=== PATIENT | male | born 1950 | race Caucasian/White ===

== ENCOUNTER 2016-12-10 08:10 | Emergency (ER) | payer MEDICARE, BC ==
[2016-12-10 08:29] VITALS: BP 164/88
[2016-12-10] MEDS ORDERED: HYDROmorphone 2 MG/ML Syringe IVPUSH ONE (08:52)
[2016-12-10] MEDS ORDERED: predniSONE 20 MG Tab PO ONE (08:53)
--- NOTE | 2016-12-10 08:59 | EDM.PDOC ---
ED HPI GENERAL MEDICAL PROBLEM - General Chief Complaint: Back Pain or Injury Stated Complaint: BACK PAIN Time Seen by Provider: 12/10/16 08:42 - History of Present Illness INITIAL COMMENTS - FREE TEXT/NARRATIVE: HISTORY AND PHYSICAL: History of present illness: The patient is a 66-year-old male with a history of cardiac disease who presents with right posterior pelvis/lumbar back pain that started 5 days ago. The patient states he was in his usual state of good health and he was stepping out of his truck and put pressure on his heel and immediately felt pain in his posterior right pelvis. The pain has been persistent and it has been increasing in intensity. He has intermittent spasms when the pain gets worse. Patient states he has had something similar in the past so he started with Motrin 800 mg and he had some leftover Flexeril and tramadol which he tried. When all of it did not work he had some Percocet left over from his CABG which were 5/325 and his been taking one every 4-6 hours. According to the if he sits in his recliner with a pillow behind him he is comfortable but any movement or stepping on that right leg produces pain in the location of the posterior pelvis. He has no weakness or sensory changes in his right leg. He has had no bowel or bladder disturbances and no midline back pain. The pain does not shoot to his leg. Patient follows at [facility] with Dr. Mauricio. The patient has no right flank pain no hematuria dysuria or frequency. He states that the pain in the area he is having started immediately as he stepped out of his truck that day. Review of systems: As per history of present illness and below otherwise all systems reviewed and negative. Past medical history: As per history of present illness and as reviewed below otherwise noncontributory. Surgical history: As per history of present illness and as reviewed below otherwise noncontributory. Social history: No reported history of drug or alcohol abuse. Family history: As per history of present illness and as reviewed below otherwise noncontributory. Physical exam: General: Well-developed overweight male who looks uncomfortable in the room and prefers to stand and clearly when you see him try to weight-bear on the right leg he grabs his right lumbar back pelvis area. HEENT: Atraumatic, normocephalic, negative for conjunctival pallor or scleral icterus, mucous membranes moist, throat clear, neck supple, nontender, trachea midline. Lungs: Clear to auscultation, breath sounds equal bilaterally, chest nontender. Heart: S1S2, regular, negative overt murmurs Well-healed midline sternotomy scar Abdomen: Soft, nondistended, nontender. Rotund large abdomen NABS Negative for costovertebral tenderness. Pelvis: Stable but there is discrete tenderness at palpation of the SI joint area on the right without any fullness soft tissue swelling ecchymosis. Genitourinary: Deferred. Rectal: Deferred. Extremities: Atraumatic, negative for cords or calf pain. Neurovascular unremarkable. Neuro: Awake, alert, oriented. Cranial nerves II through XII unremarkable. Cerebellum unremarkable. Motor and sensory unremarkable throughout. Exam nonfocal. Back: There are no midline step-offs or defects the thoracic or lumbar spine no CVA tenderness. There is posterior pelvis tenderness as described above which reproduces the pain. There is no pain to palpation of the buttocks Diagnostics: [] Therapeutics: Dilaudid prednisone Norflex I discussed with the patient and the at bedside that we can try a burst of steroids as well as increasing his Percocet to 2 tablets and I will change his muscle relaxer from Flexeril to Norflex. I strongly advised reasons to return to the ED as well as need for followup with Dr. Heraclio Mauricio tomorrow. Impression: Acute right lumbar back pain/SI joint pain Definitive disposition and diagnosis as appropriate pending reevaluation and review of above. Right low back Pain Score (Numeric/FACES): 8 - Related Data Allergies Allergy/AdvReac Type Severity Reaction Status Date / Time atorvastatin [From Lipitor] Allergy Cannot Verified 08/27/16 12:28 Remember Home Meds: Home Meds Rosuvastatin [Crestor] 20 mg PO DAILY 03/22/16 [History] metFORMIN HCl [Metformin HCl ER] 1 tab PO BID 03/22/16 [History] Aspirin [Low Dose Aspirin EC] 81 mg PO DAILY 05/28/16 [History] Carvedilol [Coreg] 25 mg PO BID 05/28/16 [History] Cyclobenzaprine [Flexeril] 10 mg PO BID PRN #14 tablet 08/27/16 [Rx] Insulin Glarg,Human.Rec.Analog [Lantus Solostar] 17 units SQ DAILY 08/27/16 [ History] Omeprazole 1 cap PO BID 08/27/16 [History] buPROPion HCl [Wellbutrin Xl] 1 tab PO DAILY 08/27/16 [History] Past Medical History HEENT History: Reports: Cataract Cardiovascular History: Reports: High cholesterol, Hypertension, LA Other Cardiovascular History: LA was 16 years ago. open heart surgery 04/26/16 Respiratory History: Reports: None Gastrointestinal History: Reports: GERD Other Gastrointestinal History: states has "chest pain" every night from GERD, after eating and lying down Genitourinary History: Reports: None Musculoskeletal History: Reports: None Neurological History: Reports: None Psychiatric History: Reports: Anxiety, Depression Endocrine/Metabolic History: Reports: Diabetes, type II, Obesity/BMI 30+ Hematologic History: Reports: None Immunologic History: Reports: None Oncologic (Cancer) History: Reports: None Dermatologic History: Reports: None - Infectious Disease History Infectious Disease History: Reports: None - Past Surgical History Head Surgeries/Procedures: Reports: None HEENT Surgical History: Reports: Cataract surgery Cardiovascular Surgical History: Reports: Coronary artery bypass Respiratory Surgical History: Reports: Thoracentesis, Other (see below) Other Respiratory Surgeries/Procedures: chest tube left. thoracentesis May GI Surgical History: Reports: None Male Surgical History: Reports: None Endocrine Surgical History: Reports: None Neurological Surgical History: Reports: None Musculoskeletal Surgical History: Reports: Knee replacement Other Musculoskeletal Surgeries/Procedures:: right Oncologic Surgical History: Reports: None Dermatological Surgical History: Reports: None Social & Family History - Family History Family Medical History: Noncontributory - Tobacco Use Smoking Status *Q: Never Smoker Second Hand Smoke Exposure: No - Caffeine Use Caffeine Use: Reports: Coffee - Recreational Drug Use Recreational Drug Use: No Drug Use in Last 12 Months: No ED ROS GENERAL - Review of Systems Review Of Systems: ROS reveals no pertinent complaints other than HPI. (See dictation) ED EXAM, GENERAL - Physical Exam Exam: See Below (See dictation) Course - Vital Signs Last Recorded V/S: Last Vital Signs Temp 36.1 C 12/10/16 08:26 Pulse 88 12/10/16 08:26 Resp 16 12/10/16 08:26 BP 164/88 H 12/10/16 08:26 Pulse Ox 98 12/10/16 08:26 - Orders/Labs/Meds Orders: Active Orders 24 hr Category Date Time Status predniSONE Med 12/10/16 08:53 Once 60 mg PO ONETIME ONE Meds: Medications Discontinued Medications Generic Name Dose Route Start Last Admin Trade Name Lawrence PRN Reason Stop Dose Admin Hydromorphone HCl 1 mg 12/10/16 08:52 Dilaudid IVPUSH 12/10/16 08:53 ONETIME ONE Orphenadrine Citrate 60 mg 12/10/16 08:52 Norflex IM 12/10/16 08:53 ONETIME ONE Prednisone 60 mg 12/10/16 08:53 Prednisone PO 12/10/16 08:54 ONETIME ONE Departure - Departure Time of Disposition: 09:00 Disposition: Home, Self-Care 01 Condition: fair Clinical Impression: Pain of right sacroiliac joint Acute lumbar back pain Qualifiers: Back pain laterality: right Sciatica presence: without sciatica Qualified Code( s): M54.5 - Low back pain Forms: ED Department Discharge Additional Instructions: The following information is given to patients seen in the emergency department who are being discharged to home. This information is to outline your options for follow-up care. We provide all patients seen in our emergency department with a follow-up referral. The need for follow-up, as well as the timing and circumstances, are variable depending upon the specifics of your emergency department visit. If you don't have a primary care physician on staff, we will provide you with a referral. We always advise you to contact your personal physician following an emergency department visit to inform them of the circumstance of the visit and for follow-up with them and/or the need for any referrals to a consulting specialist. The emergency department will also refer you to a specialist when appropriate. This referral assures that you have the opportunity for followup care with a specialist. All of these measure are taken in an effort to provide you with optimal care, which includes your followup. Under all circumstances we always encourage you to contact your private physician who remains a resource for coordinating your care. When calling for followup care, please make the office aware that this follow-up is from your recent emergency room visit. If for any reason you are refused follow-up, please contact the [facility] emergency department at and ask to speak to the emergency department charge nurse. [address] [place] [address] Please increased her Percocet to 2 tablets every 6 hours as needed and stop the tramadol and Flexeril. Start the prednisone you have been prescribed tomorrow, as you have been given a dose or ready today in the ER. Please start the Norflex as directed and return to ER as needed and as we discussed. Please call and followup with Dr. Heraclio Rivera tomorrow - My Orders Last 24 Hours: My Active Orders 12/10/16 08:53 predniSONE 60 mg PO ONETIME ONE - Assessment/Plan Last 24 Hours: My Active Orders 12/10/16 08:53 predniSONE 60 mg PO ONETIME ONE
== END 2016-12-10 09:19 | disposition home or self-care (01) ==
LOC: MW.ED 08:10
DX: M53.3 Sacrococcygeal disorders, not elsewhere classified (principal); M54.5 Low back pain; I25.2 Old myocardial infarction; I10 Essential (primary) hypertension; E78.00 Pure hypercholesterolemia, unspecified; K21.9 Gastro-esophageal reflux disease without esophagitis; F41.9 Anxiety disorder, unspecified; E11.9 Type 2 diabetes mellitus without complications; E66.9 Obesity, unspecified; Z68.34 Body mass index [BMI] 34.0-34.9, adult; Z98.49 Cataract extraction status, unspecified eye; Z95.1 Presence of aortocoronary bypass graft; Z98.890 Other specified postprocedural states; Z96.651 Presence of right artificial knee joint; Z79.82 Long term (current) use of aspirin; Z79.4 Long term (current) use of insulin; Z79.899 Other long term (current) drug therapy; Z88.8 Allergy status to other drugs, medicaments and biological substances
CPT/HCPCS: 96372; 99283; A9270; J1170; J2360; 99284

== ENCOUNTER 2019-05-18 22:42 | Emergency (ER) | payer MEDICARE, BC ==
--- NOTE | 2019-05-18 22:47 | EDM.PDOC ---
<Kwadwo Conroy - Last Filed: 05/19/19 02:11> ED HPI GENERAL MEDICAL PROBLEM - General Stated Complaint: TROUBLE BREATHING Time Seen by Provider: 05/18/19 22:44 Left side/back Pain Score (Numeric/FACES): 7 - Related Data Allergies Allergy/AdvReac Type Severity Reaction Status Date / Time atorvastatin [From Lipitor] Allergy Body Aches Verified 05/18/19 23:27 Home Meds: Home Meds Insulin Glarg,Human.Rec.Analog [Lantus Solostar] 30 units SQ DAILY 08/27/16 [ History] Aspirin 81 mg PO DAILY 05/18/19 [History] Carvedilol [Coreg] 25 mg PO DAILY 05/18/19 [History] Empagliflozin [Jardiance] 25 mg PO DAILY 05/18/19 [History] Gabapentin [Neurontin] 200 mg PO BID 05/18/19 [History] Losartan Potassium 50 mg PO DAILY 05/18/19 [History] Omeprazole 40 mg PO DAILY 05/18/19 [History] Pravastatin [Pravachol] 40 mg PO DAILY 05/18/19 [History] Umeclidinium Brm/Vilanterol Tr [Anoro Ellipta 62.5-25 MCG] 62.5 mcg IH DAILY 01/31 [History] buPROPion HCl [Wellbutrin Xl] 300 mg PO DAILY 05/18/19 [History] metFORMIN HCl [Metformin HCl] 1,000 mg PO BID 05/18/19 [History] ED ROS GENERAL - Review of Systems Review Of Systems: ROS reveals no pertinent complaints other than HPI. ED EXAM, GENERAL - Physical Exam Exam: See Below (The dictation) Course - Vital Signs Text/Narrative:: Patient's emergency department course has been unremarkable CT scan demonstrated a confluent left hilar mass extending to the subcarinal space this mass is causing narrowing of left pulmonary artery and occlusion of the left upper lobe narrowing of the lingula left lower lobe bronchi partial atelectasis of the left lung there is a small left pleural effusion noted there is also bilateral groundglass opacities as well as some interlobular septal thickening suggesting pulmonary edema slight focal focal consolidation within the residual aerated left lower lobe Also Represe Postobstructive Pneumonia Patient Lactate Was 1.2. Blood Cultures Were Drawn and Levaquin 750 Mg Is Given IV Patient Be Transferred to [place] per Family's Request Where His Oncologist Is. Last Recorded V/S: Last Vital Signs Temp 97.0 F 05/18/19 22:43 Pulse 62 05/19/19 02:52 Resp 17 05/19/19 02:52 BP 148/80 H 05/19/19 02:52 Pulse Ox 92 L 05/19/19 02:52 - Orders/Labs/Meds Orders: Active Orders 24 hr Category Date Time Status EKG 12 Lead [EKG Documentation Completion] [RC] STAT Care 05/18/19 22:48 Active CULTURE BLOOD [BC] Stat Lab 05/19/19 01:14 Received CULTURE BLOOD [BC] Stat Lab 05/19/19 01:18 Received Blood Culture x2 Reflex Set [OM.PC] Stat Oth 05/19/19 00:58 Ordered Saline Lock Insert [OM.PC] Stat Oth 05/18/19 22:49 Ordered Labs: Laboratory Tests 05/18/19 05/18/19 05/18/19 Range/Units 22:57 22:57 22:57 WBC 5.24 (4.0-11.0) K/uL RBC 4.97 (4.50-5.90) M/uL Hgb 14.5 (13.0-17.0) g/dL Hct 45.8 (38.0-50.0) % MCV 92.2 (80.0-98.0) fL MCH 29.2 (27.0-32.0) pg MCHC 31.7 (31.0-37.0) g/dL RDW Std Deviation 46.5 (28.0-62.0) fl RDW Coeff of Vannessa 14 (11.0-15.0) % Plt Count 262 (150-400) K/uL MPV 9.90 (7.40-12.00) fL Neut % (Auto) 59.1 (48.0-80.0) % Lymph % (Auto) 26.9 (16.0-40.0) % [place] % (Auto) 11.3 (0.0-15.0) % Eos % (Auto) 2.1 (0.0-7.0) % Baso % (Auto) 0.6 (0.0-1.5) % Neut # (Auto) 3.1 (1.4-5.7) K/uL Lymph # (Auto) 1.4 (0.6-2.4) K/uL [place] # (Auto) 0.6 (0.0-0.8) K/uL Eos # (Auto) 0.1 (0.0-0.7) K/uL Baso # (Auto) 0.0 (0.0-0.1) K/uL Nucleated RBC % 0.0 /100WBC Nucleated RBCs # 0 K/uL ABG pH (7.35-7.45) ABG pCO2 (35-45) mmHG ABG pO2 (75-100) mmHG ABG HCO3 (22-26) mEq/L ABG Total CO2 ABG Base Excess (-2.0-2.0) Lactate 1.2 (0.20-2.00) mmol/L Sodium 140 (136-148) mmol/L Potassium 5.0 (3.5-5.1) mmol/L Chloride 104 (98-107) mmol/L Carbon Dioxide 31.9 (21.0-32.0) mmol/L BUN 19 H (7.0-18.0) mg/dL Creatinine 1.2 (0.8-1.3) mg/dL Est Cr Clr Drug Dosing 58.10 mL/min Estimated GFR (MDRD) > 60.0 ml/min Glucose 183 H (74-106) mg/dL Calcium 9.0 (8.5-10.1) mg/dL Total Bilirubin 0.2 (0.2-1.0) mg/dL AST 31 (15-37) IU/L ALT 19 (14-63) IU/L Alkaline Phosphatase 74 (46-116) U/L Troponin I < 0.050 (0.000-0.056) ng/mL Total Protein 6.7 (6.4-8.2) g/dL Albumin 3.4 (3.4-5.0) g/dL Globulin 3.3 (2.6-4.0) g/dL Albumin/Globulin Ratio 1.0 (0.9-1.6) 05/18/19 Range/Units 23:50 WBC (4.0-11.0) K/uL RBC (4.50-5.90) M/uL Hgb (13.0-17.0) g/dL Hct (38.0-50.0) % MCV (80.0-98.0) fL MCH (27.0-32.0) pg MCHC (31.0-37.0) g/dL RDW Std Deviation (28.0-62.0) fl RDW Coeff of Vannessa (11.0-15.0) % Plt Count (150-400) K/uL MPV (7.40-12.00) fL Neut % (Auto) (48.0-80.0) % Lymph % (Auto) (16.0-40.0) % [place] % (Auto) (0.0-15.0) % Eos % (Auto) (0.0-7.0) % Baso % (Auto) (0.0-1.5) % Neut # (Auto) (1.4-5.7) K/uL Lymph # (Auto) (0.6-2.4) K/uL [place] # (Auto) (0.0-0.8) K/uL Eos # (Auto) (0.0-0.7) K/uL Baso # (Auto) (0.0-0.1) K/uL Nucleated RBC % /100WBC Nucleated RBCs # K/uL ABG pH 7.361 (7.35-7.45) ABG pCO2 52 H (35-45) mmHG ABG pO2 66 L (75-100) mmHG ABG HCO3 29 H (22-26) mEq/L ABG Total CO2 26.4 ABG Base Excess 2.8 H (-2.0-2.0) Lactate (0.20-2.00) mmol/L Sodium (136-148) mmol/L Potassium (3.5-5.1) mmol/L Chloride (98-107) mmol/L Carbon Dioxide (21.0-32.0) mmol/L BUN (7.0-18.0) mg/dL Creatinine (0.8-1.3) mg/dL Est Cr Clr Drug Dosing mL/min Estimated GFR (MDRD) ml/min Glucose (74-106) mg/dL Calcium (8.5-10.1) mg/dL Total Bilirubin (0.2-1.0) mg/dL AST (15-37) IU/L ALT (14-63) IU/L Alkaline Phosphatase (46-116) U/L Troponin I (0.000-0.056) ng/mL Total Protein (6.4-8.2) g/dL Albumin (3.4-5.0) g/dL Globulin (2.6-4.0) g/dL Albumin/Globulin Ratio (0.9-1.6) Meds: Medications Discontinued Medications Generic Name Dose Route Start Last Admin Trade Name Freq PRN Reason Stop Dose Admin Hydromorphone HCl 1 mg 05/19/19 01:06 05/19/19 01:15 Dilaudid IVPUSH 05/19/19 01:07 1 mg ONETIME ONE Administration Levofloxacin/Dextrose 750 mg/ 150 mls @ 100 mls/hr 05/19/19 00:58 05/19/19 01 :15 Premix IV 05/19/19 02:27 100 mls/hr ONETIME ONE Administration Iopamidol 100 ml 05/19/19 00:21 05/19/19 00:22 Isovue Multipack-370 (76%) IVPUSH 05/19/19 00:22 100 ml ONETIME STA Administration Ondansetron HCl 4 mg 05/19/19 01:06 05/19/19 01:15 Zofran IVPUSH 05/19/19 01:07 4 mg ONETIME ONE Administration Sodium Chloride 10 ml 05/18/19 22:49 05/18/19 23:18 Saline Flush FLUSH 10 ml ASDIRECTED PRN Administration Keep Vein Open Sodium Chloride 2.5 ml 05/18/19 22:49 05/18/19 23:18 Saline Flush FLUSH 2.5 ml ASDIRECTED PRN Administration Keep Vein Open Departure - Departure Time of Disposition: 02:12 Disposition: DC/Tfer to Acute Hospital 02 Condition: Good Clinical Impression: Dyspnea Qualifiers: Dyspnea type: other forms of dyspnea Qualified Code(s): R06.09 - Other forms of dyspnea Pulmonary cancer Qualifiers: Laterality: left Lung location: hilum of lung Qualified Code(s): C34.02 - Malignant neoplasm of left main bronchus - Discharge Information Referrals: Heraclio Mauricio MD [Primary Care Provider] - Forms: ED Department Discharge - My Orders Last 24 Hours: My Active Orders 05/18/19 22:48 EKG 12 Lead [EKG Documentation Completion] [RC] STAT 05/18/19 22:49 Saline Lock Insert [OM.PC] Stat - Assessment/Plan Last 24 Hours: My Active Orders 05/18/19 22:48 EKG 12 Lead [EKG Documentation Completion] [RC] STAT 05/18/19 22:49 Saline Lock Insert [OM.PC] Stat <Kash Newman E - Last Filed: 05/19/19 10:09> ED HPI GENERAL MEDICAL PROBLEM - General Source of Information: Reports: Patient History Limitations: Reports: No Limitations - History of Present Illness INITIAL COMMENTS - FREE TEXT/NARRATIVE: HISTORY AND PHYSICAL: History of present illness: Patient is a 68-year-old male who presents to the emergency room with complaints of shortness of breath over the past 24 hours. He reports that he was diagnosed with lung cancer last month at [facility] while receiving a respiratory/cardiac work-up. Stats they found a tumor to the left posterior chest wall "the size of a tennis ball". He is supposed to have his initial consultation with Dr. Mcguire, the oncologist, on Sunday (05/21/19) prior to starting radiation and/or chemotherapy. Since his diagnoses he has been on home oxygen as needed up to 3 L. He has been using his oxygen today and his oxygen saturation was 73% while on 3L. Besides the shortness of breath he has the sensation of the tumor in his posterior chest wall "pushing up against everything" making it hard to take full deep breaths. He has lost his voice but denies any difficulty swallowing nor throat pain. He denies any fever, chills, headache, syncope or near syncope. He denies any chest pain, abdominal pain, nausea, vomiting, diarrhea or constipation. He has been eating and drinking appropriately. Past medical history of hypertension, [place] with CABG, and chronic back pain. Review of systems: As per history of present illness and below otherwise all systems reviewed and negative. Past medical history: As per history of present illness and as reviewed below otherwise noncontributory. Surgical history: As per history of present illness and as reviewed below otherwise noncontributory. Social history: See social history for further information Family history: As per history of present illness and as reviewed below otherwise noncontributory. Physical exam: General: Well-developed and well-nourished 68-year-old male. Alert and oriented. Nontoxic appearing and in no acute distress. HEENT: Atraumatic, normocephalic, pupils equal and reactive bilaterally, negative for conjunctival pallor or scleral icterus, mucous membranes moist, throat clear, neck supple, nontender, trachea midline. No drooling or trismus noted. No meningeal signs. No hot potato voice noted. Lungs: Diminished to left base with fine rhonchi to right base, chest nontender to palpation. Heart: S1S2, regular rate and rhythm without overt murmur Abdomen: Soft, nondistended, nontender. Negative for masses. Negative for costovertebral tenderness. Pelvis: Stable nontender. Skin: Intact, warm, dry. No lesions or rashes noted. Extremities: Atraumatic, moves all extremities per self without difficulty or deficits, negative for cords or calf pain. Neurovascular unremarkable. Neuro: Awake, alert, oriented. Cranial nerves II through XII unremarkable. Cerebellum unremarkable. Motor and sensory unremarkable throughout. Exam nonfocal. Notes: Diagnostics are pending. Dr. Conroy was briefed on this patient; will assume care of patient. Diagnostics: CBC, CMP, Troponin, EKG, CTA Therapeutics: Saline Lock Definitive disposition and diagnosis as appropriate pending reevaluation and review of above. Past Medical History HEENT History: Reports: Cataract Cardiovascular History: Reports: High Cholesterol, Hypertension, [place] Other Cardiovascular History: [place] was 16 years ago. open heart surgery 04/26/16 Respiratory History: Reports: None Gastrointestinal History: Reports: GERD Other Gastrointestinal History: states has "chest pain" every night from GERD, after eating and lying down Genitourinary History: Reports: None Musculoskeletal History: Reports: None Neurological History: Reports: None Psychiatric History: Reports: Anxiety, Depression Endocrine/Metabolic History: Reports: Diabetes, Type II, Obesity/BMI 30+ Hematologic History: Reports: None Immunologic History: Reports: None Oncologic (Cancer) History: Reports: None Dermatologic History: Reports: None - Infectious Disease History Infectious Disease History: Reports: None - Past Surgical History HEENT Surgical History: Reports: Cataract Surgery Cardiovascular Surgical History: Reports: Coronary Artery Bypass Respiratory Surgical History: Reports: Thoracentesis, Other (See Below) Musculoskeletal Surgical History: Reports: Knee Replacement Social & Family History - Family History Family Medical History: Noncontributory - Caffeine Use Caffeine Use: Reports: Coffee Course - Vital Signs Last Recorded V/S: Last Vital Signs Temp 97.0 F 05/18/19 22:43 Pulse 62 05/19/19 02:52 Resp 17 05/19/19 02:52 BP 148/80 H 05/19/19 02:52 Pulse Ox 92 L 05/19/19 02:52 - Orders/Labs/Meds Orders: Active Orders 24 hr Category Date Time Status EKG 12 Lead [EKG Documentation Completion] [RC] STAT Care 05/18/19 22:48 Active CULTURE BLOOD [BC] Stat Lab 05/19/19 01:14 Received CULTURE BLOOD [BC] Stat Lab 05/19/19 01:18 Received Blood Culture x2 Reflex Set [OM.PC] Stat Oth 05/19/19 00:58 Ordered Saline Lock Insert [OM.PC] Stat Oth 05/18/19 22:49 Ordered Labs: Laboratory Tests 05/18/19 05/18/19 05/18/19 Range/Units 22:57 22:57 22:57 WBC 5.24 (4.0-11.0) K/uL RBC 4.97 (4.50-5.90) M/uL Hgb 14.5 (13.0-17.0) g/dL Hct 45.8 (38.0-50.0) % MCV 92.2 (80.0-98.0) fL MCH 29.2 (27.0-32.0) pg MCHC 31.7 (31.0-37.0) g/dL RDW Std Deviation 46.5 (28.0-62.0) fl RDW Coeff of Vannessa 14 (11.0-15.0) % Plt Count 262 (150-400) K/uL MPV 9.90 (7.40-12.00) fL Neut % (Auto) 59.1 (48.0-80.0) % Lymph % (Auto) 26.9 (16.0-40.0) % [place] % (Auto) 11.3 (0.0-15.0) % Eos % (Auto) 2.1 (0.0-7.0) % Baso % (Auto) 0.6 (0.0-1.5) % Neut # (Auto) 3.1 (1.4-5.7) K/uL Lymph # (Auto) 1.4 (0.6-2.4) K/uL [place] # (Auto) 0.6 (0.0-0.8) K/uL Eos # (Auto) 0.1 (0.0-0.7) K/uL Baso # (Auto) 0.0 (0.0-0.1) K/uL Nucleated RBC % 0.0 /100WBC Nucleated RBCs # 0 K/uL ABG pH (7.35-7.45) ABG pCO2 (35-45) mmHG ABG pO2 (75-100) mmHG ABG HCO3 (22-26) mEq/L ABG Total CO2 ABG Base Excess (-2.0-2.0) Lactate 1.2 (0.20-2.00) mmol/L Sodium 140 (136-148) mmol/L Potassium 5.0 (3.5-5.1) mmol/L Chloride 104 (98-107) mmol/L Carbon Dioxide 31.9 (21.0-32.0) mmol/L BUN 19 H (7.0-18.0) mg/dL Creatinine 1.2 (0.8-1.3) mg/dL Est Cr Clr Drug Dosing 58.10 mL/min Estimated GFR (MDRD) > 60.0 ml/min Glucose 183 H (74-106) mg/dL Calcium 9.0 (8.5-10.1) mg/dL Total Bilirubin 0.2 (0.2-1.0) mg/dL AST 31 (15-37) IU/L ALT 19 (14-63) IU/L Alkaline Phosphatase 74 (46-116) U/L Troponin I < 0.050 (0.000-0.056) ng/mL Total Protein 6.7 (6.4-8.2) g/dL Albumin 3.4 (3.4-5.0) g/dL Globulin 3.3 (2.6-4.0) g/dL Albumin/Globulin Ratio 1.0 (0.9-1.6) 05/18/19 Range/Units 23:50 WBC (4.0-11.0) K/uL RBC (4.50-5.90) M/uL Hgb (13.0-17.0) g/dL Hct (38.0-50.0) % MCV (80.0-98.0) fL MCH (27.0-32.0) pg MCHC (31.0-37.0) g/dL RDW Std Deviation (28.0-62.0) fl RDW Coeff of Vannessa (11.0-15.0) % Plt Count (150-400) K/uL MPV (7.40-12.00) fL Neut % (Auto) (48.0-80.0) % Lymph % (Auto) (16.0-40.0) % [place] % (Auto) (0.0-15.0) % Eos % (Auto) (0.0-7.0) % Baso % (Auto) (0.0-1.5) % Neut # (Auto) (1.4-5.7) K/uL Lymph # (Auto) (0.6-2.4) K/uL [place] # (Auto) (0.0-0.8) K/uL Eos # (Auto) (0.0-0.7) K/uL Baso # (Auto) (0.0-0.1) K/uL Nucleated RBC % /100WBC Nucleated RBCs # K/uL ABG pH 7.361 (7.35-7.45) ABG pCO2 52 H (35-45) mmHG ABG pO2 66 L (75-100) mmHG ABG HCO3 29 H (22-26) mEq/L ABG Total CO2 26.4 ABG Base Excess 2.8 H (-2.0-2.0) Lactate (0.20-2.00) mmol/L Sodium (136-148) mmol/L Potassium (3.5-5.1) mmol/L Chloride (98-107) mmol/L Carbon Dioxide (21.0-32.0) mmol/L BUN (7.0-18.0) mg/dL Creatinine (0.8-1.3) mg/dL Est Cr Clr Drug Dosing mL/min Estimated GFR (MDRD) ml/min Glucose (74-106) mg/dL Calcium (8.5-10.1) mg/dL Total Bilirubin (0.2-1.0) mg/dL AST (15-37) IU/L ALT (14-63) IU/L Alkaline Phosphatase (46-116) U/L Troponin I (0.000-0.056) ng/mL Total Protein (6.4-8.2) g/dL Albumin (3.4-5.0) g/dL Globulin (2.6-4.0) g/dL Albumin/Globulin Ratio (0.9-1.6) Meds: Medications Discontinued Medications Generic Name Dose Route Start Last Admin Trade Name Freq PRN Reason Stop Dose Admin Hydromorphone HCl 1 mg 05/19/19 01:06 05/19/19 01:15 Dilaudid IVPUSH 05/19/19 01:07 1 mg ONETIME ONE Administration Levofloxacin/Dextrose 750 mg/ 150 mls @ 100 mls/hr 05/19/19 00:58 05/19/19 01 :15 Premix IV 05/19/19 02:27 100 mls/hr ONETIME ONE Administration Iopamidol 100 ml 05/19/19 00:21 05/19/19 00:22 Isovue Multipack-370 (76%) IVPUSH 05/19/19 00:22 100 ml ONETIME STA Administration Ondansetron HCl 4 mg 05/19/19 01:06 05/19/19 01:15 Zofran IVPUSH 05/19/19 01:07 4 mg ONETIME ONE Administration Sodium Chloride 10 ml 05/18/19 22:49 05/18/19 23:18 Saline Flush FLUSH 10 ml ASDIRECTED PRN Administration Keep Vein Open Sodium Chloride 2.5 ml 05/18/19 22:49 05/18/19 23:18 Saline Flush FLUSH 2.5 ml ASDIRECTED PRN Administration Keep Vein Open - My Orders Last 24 Hours: My Active Orders 05/18/19 22:48 EKG 12 Lead [EKG Documentation Completion] [RC] STAT 05/18/19 22:49 Saline Lock Insert [OM.PC] Stat - Assessment/Plan Last 24 Hours: My Active Orders 05/18/19 22:48 EKG 12 Lead [EKG Documentation Completion] [RC] STAT 05/18/19 22:49 Saline Lock Insert [OM.PC] Stat
[2019-05-18] MEDS ORDERED: Sodium Chloride 0.9% 10 ML Syringe FLUSH PRN (22:49)
[2019-05-18] MEDS ORDERED: Sodium Chloride 0.9% 2.5 ML Syringe FLUSH PRN (22:49)
[2019-05-18 23:38] LABS: BLOOD UREA NITROGEN,BUN 19 mg/dL (7.0-18.0); CARBON DIOXIDE,CO2 31.9 mmol/L (21.0-32.0); CHLORIDE,CL 104 mmol/L (98-107); GLUCOSE RANDOM 183 mg/dL (74-106); SODIUM,NA 140 mmol/L (136-148)
[2019-05-19] MEDS ORDERED: Iopamidol 755 MG/ML 500 ML Multipack Bottle IVPUSH STA (00:21)
--- NOTE | 2019-05-19 00:47 | CT ---
INDICATION: New lung cancer diagnosis, shortness of breath. TECHNIQUE: CT chest PE was acquired with 75 cc Isovue 370 intravenous contrast. COMPARISON: None. FINDINGS: Heart and vasculature: There are no filling defects within the pulmonary artery with central pulmonary arterial dilatation consistent with pulmonary hypertension. There is some narrowing of the left pulmonary artery relative to the right, see comments below. Thoracic aorta is normal in caliber with atherosclerotic calcification. Coronary atherosclerosis status post coronary bypass grafting. Lungs and pleural: Small left pleural effusion. Left hilar mass causes atelectasis of much of the left lung although note is made of some ground-glass opacities and interlobular septal thickening bilaterally as well as some slightly increased density within residual aerated left lower lobe and lingula. Right middle lobe 4 millimeter pulmonary nodule (402, 46). Lymph nodes/mediastinum: There is prominent soft tissue density at the left hilar region causing some narrowing of the left pulmonary artery, occlusion of the left upper lobe bronchus as well as narrowing of the lingular and left lower lobe bronchi. The soft tissue component extends into the subcarinal space. This measures at least in the 8 centimeter range with some adjacent/more distal atelectasis. There is also corresponding pre-vascular adenopathy measuring up to 1.8 centimeters in short axis. Chest wall: No masses. Upper abdomen: Calcified preet hepatis lymph node consistent with old granulomatous disease. Bones: Status post median sternotomy. IMPRESSION: 1. Underlying pulmonary arterial hypertension without evidence of pulmonary embolus. 2. Confluent left hilar mass extending to the subcarinal space and measuring at least 8 centimeters as well as prevascular adenopathy consistent with the given history of lung cancer. This mass causes narrowing of the left pulmonary artery, occlusion of the left upper lobe bronchus and narrowing of the lingular and left lower lobe bronchi. Partial atelectasis of the left lung. 3. Small left pleural effusion. 4. Bilateral ground-glass opacities as well as some interlobular septal thickening suggesting superimposed pulmonary edema. Slightly more focal consolidation within the residual aerated left lower lobe and lingula can also represent more prominent atelectasis or postobstructive pneumonitis/pneumonia. Please note that all CT scans at this facility use dose modulation, iterative reconstruction, and/or weight-based dosing when appropriate to reduce radiation dose to as low as reasonably achievable. Dictated by Enzo Hamm MD @ May 19 2019 12:35AM Signed by Dr. Enzo Hamm @ May 19 2019 12:44AM
[2019-05-19] MEDS ORDERED: Levofloxacin/Dextrose 5%-Water 750 MG in Premix Bag 1 BAG IV ONE (00:58)
[2019-05-19] MEDS ORDERED: Ondansetron 4 MG/2 ML SDV IVPUSH ONE (01:06)
[2019-05-19] MEDS ORDERED: HYDROmorphone 1 MG/ML Syringe IVPUSH ONE (01:06)
[2019-05-19 02:53] VITALS: BP 148/80; PULSE 62
== END 2019-05-19 03:00 ==
LOC: MW.ED 22:42
DX: C34.02 Malignant neoplasm of left main bronchus (principal); I10 Essential (primary) hypertension; E11.9 Type 2 diabetes mellitus without complications
CPT/HCPCS: 36415; 36600; 71275; 80053; 82803; 83605; 84484; 85025; 87040; 93005; 96365; 96366; 96375; 99285; J1170; J1956; J2405; Q9967; 99284

== ENCOUNTER 2019-07-29 22:59 | Emergency (ER) | payer MEDICARE, BC ==
[2019-07-29] MEDS ORDERED: HYDROmorphone 1 MG/ML Syringe IVPUSH ONE (23:15)
[2019-07-29] MEDS ORDERED: Ondansetron 4 MG/2 ML SDV IVPUSH ONE (23:15)
--- NOTE | 2019-07-29 23:19 | EDM.PDOC ---
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 currently and had a PET scan yesterday as part of his routine evaluation for which the results remain pending comes in now with back and abdominal pain the back is chronic pain abdominal pain is relatively new but he has had prior episodes of orthopnea be related to constipation he states he has been on milk of magnesia and had multiple bowel movements vein is not de souza related to constipation he did induce vomiting once this been no vomiting otherwise been no reported fever chills no numbness weakness incontinence or retention of bowel or bladder Review of systems: As per history of present illness and below otherwise all systems reviewed and negative. Past medical history: As per history of present illness and as reviewed below otherwise noncontributory. Surgical history: As per history of present illness and as reviewed below otherwise noncontributory. Social history: No reported history of drug or alcohol abuse. Family history: As per history of present illness and as reviewed below otherwise noncontributory. Physical exam: HEENT: Atraumatic, normocephalic, pupils reactive, negative for conjunctival pallor or scleral icterus, mucous membranes moist, throat clear, neck supple, nontender, trachea midline. Lungs: Clear to auscultation, breath sounds equal bilaterally, chest nontender. Port noted in right chest Heart: S1S2, regular, negative for clicks, rubs, or JVD. Abdomen: Soft, protuberant with no localized tenderness. Negative for masses or hepatosplenomegaly. Negative for costovertebral tenderness. Pelvis: Stable nontender. Genitourinary: Deferred. Rectal: Deferred. Extremities: Atraumatic, negative for cords or calf pain. Neurovascular unremarkable. Neuro: Awake, alert, oriented. Cranial nerves II through XII unremarkable. Cerebellum unremarkable. Motor and sensory unremarkable throughout. Exam nonfocal. Diagnostics: CBC CMP UA lipase chest x-ray CT abdomen and pelvis Therapeutics: Saline 1 L bolus Dilaudid 1 mg IV Zofran 4 mg IV Impression: #1 history of small cell pulmonary CTA #2 chronic back pain #3 abdominal pain Definitive disposition and diagnosis as appropriate pending reevaluation and review of above. abdomen Pain Score (Numeric/FACES): 8 - Related Data Allergies Allergy/AdvReac Type Severity Reaction Status Date / Time atorvastatin [From Lipitor] Allergy Body Aches Verified 07/29/19 23:07 Home Meds: Home Meds Insulin Glarg,Human.Rec.Analog [Lantus Solostar] 30 units SQ DAILY 08/27/16 [ History] Aspirin 81 mg PO DAILY 05/18/19 [History] Carvedilol [Coreg] 25 mg PO DAILY 05/18/19 [History] Empagliflozin [Jardiance] 25 mg PO DAILY 05/18/19 [History] Gabapentin [Neurontin] 200 mg PO BID 05/18/19 [History] Omeprazole 40 mg PO DAILY 05/18/19 [History] Pravastatin [Pravachol] 40 mg PO DAILY 05/18/19 [History] Umeclidinium Brm/Vilanterol Tr [Anoro Ellipta 62.5-25 MCG] 62.5 mcg IH DAILY PRN 05/18/19 [History] buPROPion HCl [Wellbutrin Xl] 300 mg PO DAILY 05/18/19 [History] Past Medical History HEENT History: Reports: Cataract Cardiovascular History: Reports: High Cholesterol, Hypertension, [place] Other Cardiovascular History: [place] was 16 years ago. open heart surgery 04/26/16 Respiratory History: Reports: None Gastrointestinal History: Reports: GERD Other Gastrointestinal History: states has "chest pain" every night from GERD, after eating and lying down Genitourinary History: Reports: None Musculoskeletal History: Reports: None Neurological History: Reports: None Psychiatric History: Reports: Anxiety, Depression Endocrine/Metabolic History: Reports: Diabetes, Type II, Obesity/BMI 30+ Hematologic History: Reports: None Immunologic History: Reports: None Oncologic (Cancer) History: Reports: None Dermatologic History: Reports: None - Infectious Disease History Infectious Disease History: Reports: None - Past Surgical History HEENT Surgical History: Reports: Cataract Surgery Cardiovascular Surgical History: Reports: Coronary Artery Bypass Respiratory Surgical History: Reports: Thoracentesis, Other (See Below) Musculoskeletal Surgical History: Reports: Knee Replacement Social & Family History - Family History Family Medical History: Noncontributory - Tobacco Use Smoking Status *Q: Never Smoker - Caffeine Use Caffeine Use: Reports: Coffee - Recreational Drug Use Recreational Drug Use: No ED ROS GENERAL - Review of Systems Review Of Systems: ROS reveals no pertinent complaints other than HPI. ED EXAM, GENERAL - Physical Exam Exam: See Below (See dictation) Course - Vital Signs Last Recorded V/S: Last Vital Signs Temp 35.9 C 07/30/19 01:22 Pulse 75 07/30/19 01:22 Resp 18 07/30/19 01:22 BP 142/64 H 07/30/19 01:22 Pulse Ox 95 07/30/19 01:22 - Orders/Labs/Meds Labs: Laboratory Tests 07/29/19 07/29/19 07/29/19 Range/Units 23:29 23:29 23:30 WBC 3.16 L (4.0-11.0) K/uL RBC 3.98 L (4.50-5.90) M/uL Hgb 11.9 L (13.0-17.0) g/dL Hct 35.6 L (38.0-50.0) % MCV 89.4 (80.0-98.0) fL MCH 29.9 (27.0-32.0) pg MCHC 33.4 (31.0-37.0) g/dL RDW Std Deviation 52.7 (28.0-62.0) fl RDW Coeff of [place] 17 H (11.0-15.0) % Plt Count 228 (150-400) K/uL MPV 8.80 (7.40-12.00) fL Neut % (Auto) 25.4 L (48.0-80.0) % Lymph % (Auto) 51.9 H (16.0-40.0) % Slope % (Auto) 19.9 H (0.0-15.0) % Eos % (Auto) 2.2 (0.0-7.0) % Baso % (Auto) 0.6 (0.0-1.5) % Neut # (Auto) 0.8 L (1.4-5.7) K/uL Lymph # (Auto) 1.6 (0.6-2.4) K/uL Slope # (Auto) 0.6 (0.0-0.8) K/uL Eos # (Auto) 0.1 (0.0-0.7) K/uL Baso # (Auto) 0.0 (0.0-0.1) K/uL Nucleated RBC % 0.0 /100WBC Nucleated RBCs # 0 K/uL Sodium 136 (136-148) mmol/L Potassium 4.7 (3.5-5.1) mmol/L Chloride 100 (98-107) mmol/L Carbon Dioxide 28.6 (21.0-32.0) mmol/L BUN 11 (7.0-18.0) mg/dL Creatinine 1.1 (0.8-1.3) mg/dL Est Cr Clr Drug Dosing 61.32 mL/min Estimated GFR (MDRD) > 60.0 ml/min Glucose 231 H (74-106) mg/dL Calcium 9.0 (8.5-10.1) mg/dL Total Bilirubin 0.3 (0.2-1.0) mg/dL AST 19 (15-37) IU/L ALT 33 (14-63) IU/L Alkaline Phosphatase 83 (46-116) U/L Total Protein 7.6 (6.4-8.2) g/dL Albumin 3.9 (3.4-5.0) g/dL Globulin 3.7 (2.6-4.0) g/dL Albumin/Globulin Ratio 1.1 (0.9-1.6) Lipase 183 (73-393) U/L Urine Color YELLOW Urine Appearance CLEAR Urine pH 6.0 (5.0-8.0) Ur Specific [place] 1.025 (1.001-1.035) Urine Protein NEGATIVE (NEGATIVE) mg/dL Urine Glucose (UA) 500 H (NEGATIVE) mg/dL Urine Ketones NEGATIVE (NEGATIVE) mg/dL Urine Occult Blood TRACE-LYSED H (NEGATIVE) Urine Nitrite NEGATIVE (NEGATIVE) Urine Bilirubin NEGATIVE (NEGATIVE) Urine Urobilinogen 0.2 (<2.0) EU/dL Ur Leukocyte Esterase NEGATIVE (NEGATIVE) Urine RBC 0-1 (0-2/HPF) Urine WBC 0-1 (0-5/HPF) Ur Epithelial Cells RARE (NONE-FEW) Urine Bacteria FEW (NEGATIVE) Urine Mucus LIGHT (NONE-MOD) Meds: Medications Discontinued Medications Generic Name Dose Route Start Last Admin Trade Name Freq PRN Reason Stop Dose Admin Heparin Sodium (Porcine) 500 units 07/30/19 01:24 07/30/19 01:31 Heparin Lock Flush 100 Units/Ml FLUSH 07/30/19 01:25 500 units ONETIME ONE Administration Hydromorphone HCl 1 mg 07/29/19 23:15 07/29/19 23:34 Dilaudid IVPUSH 07/29/19 23:16 1 mg ONETIME ONE Administration Hydromorphone HCl 1 mg 07/30/19 00:16 07/30/19 00:24 Dilaudid IVPUSH 07/30/19 00:17 1 mg ONETIME ONE Administration Sodium Chloride 1,000 mls @ 999 mls/hr 07/29/19 23:45 07/29/19 23:34 Normal Saline IV 999 mls/hr ASDIRECTED [place] Administration Ondansetron HCl 4 mg 07/29/19 23:15 07/29/19 23:34 Zofran IVPUSH 07/29/19 23:16 4 mg ONETIME ONE Administration Departure - Departure Time of Disposition: 02:29 Disposition: Home, Self-Care 01 Condition: Good Clinical Impression: Abdominal pain, History of lung cancer, Chronic back pain - Discharge Information Instructions: Abdominal Pain, Adult, [id number] Referrals: Heraclio Mauricio MD [Primary Care Provider] - Forms: ED Department Discharge
[2019-07-29] MEDS ORDERED: Sodium Chloride 0.9% 1,000 ML IV SCH (23:45)
[2019-07-30 00:02] LABS: BLOOD UREA NITROGEN,BUN 11 mg/dL (7.0-18.0); CARBON DIOXIDE,CO2 28.6 mmol/L (21.0-32.0); CHLORIDE,CL 100 mmol/L (98-107); GLUCOSE RANDOM 231 mg/dL (74-106); LIPASE 183 U/L (73-393); POTASSIUM,K 4.7 mmol/L (3.5-5.1); SODIUM,NA 136 mmol/L (136-148)
--- NOTE | 2019-07-30 00:13 | CR ---
INDICATION: Chest pain, patient has lung cancer TECHNIQUE: Chest radiograph 1 view COMPARISON: None FINDINGS: Mediastinum: There is a nodular density over the left hilum measuring 3.8 cm. A right Port-A-Cath is noted with tip in SVC. Previous median sternotomy and coronary artery bypass grafting (CABG) noted. A pericardial fat pad is present and obscures the left cardiophrenic border. Lung: Both lungs are unremarkable in appearance. No sign of pleural effusion seen. No pneumothorax is identified. Bone and Soft tissue: Unremarkable for age. IMPRESSION: 1. There is a nodular density over the left hilum measuring 3.8 cm. Comparison with any prior outside imaging is recommended. If these cannot be obtained, follow up outpatient chest CT recommended. Dictated by Jeferson West MD @ 07/30/2019 12:10:27 AM Dictated by: Jeferson West MD @ 07/30/2019 00:10:33 (Electronically Signed)
[2019-07-30] MEDS ORDERED: HYDROmorphone 1 MG/ML Syringe IVPUSH ONE (00:16)
--- NOTE | 2019-07-30 00:44 | CT ---
INDICATION: Abdominal pain, patient with lung cancer. TECHNIQUE: CT abdomen and pelvis without contrast. COMPARISON: None. FINDINGS: Lower chest: Left basilar discoid atelectasis. Status post median sternotomy. Liver: Diffusely decreased density of the liver consistent with fatty infiltration. Gallbladder and bile ducts: No stones or inflammation. No biliary dilatation. Pancreas: Unremarkable. No mass or inflammation. Spleen: Normal in size. No masses. Adrenal glands: Normal in size. No nodules. Kidneys: Normal in size. No masses, stones, or hydronephrosis. GI tract: The stomach is unremarkable. No dilated loops of large or small intestine. Fat density within the ascending colon suggestive of a lipoma. This measures 2.3 centimeters. Colonic diverticulosis without localizing inflammation. Vasculature: Atherosclerosis without abdominal aortic aneurysm. Lymph nodes: Calcified preet hepatis lymph nodes. Abdominal wall/Omentum/Peritoneum: Fat containing umbilical hernia. Pelvis: Unremarkable. No pelvic masses. Bones: Bilateral hip osteoarthritis. Right sacroiliac osteoarthritis. IMPRESSION: 1. Colonic diverticulosis without bautista diverticulitis. 2. Fatty infiltration of the liver. 3. Fat containing umbilical hernia. Please note that all CT scans at this facility use dose modulation, iterative reconstruction, and/or weight-based dosing when appropriate to reduce radiation dose to as low as reasonably achievable. Dictated by Enzo Hamm MD @ Jul 30 2019 12:33AM Signed by Dr. Enzo Hamm @ Jul 30 2019 12:41AM
[2019-07-30 01:23] VITALS: BP 142/64; PULSE 75
== END 2019-07-30 01:33 | disposition home or self-care (01) ==
LOC: MW.ED 22:59
DX: M54.9 Dorsalgia, unspecified (principal); G89.29 Other chronic pain; R10.9 Unspecified abdominal pain; E78.00 Pure hypercholesterolemia, unspecified; I10 Essential (primary) hypertension; I25.2 Old myocardial infarction; F41.9 Anxiety disorder, unspecified; F32.9 Major depressive disorder, single episode, unspecified; E11.9 Type 2 diabetes mellitus without complications; Z85.118 Personal history of other malignant neoplasm of bronchus and lung; Z88.8 Allergy status to other drugs, medicaments and biological substances; Z79.4 Long term (current) use of insulin; Z79.82 Long term (current) use of aspirin; Z79.899 Other long term (current) drug therapy
CPT/HCPCS: 36415; 71045; 74176; 80053; 81001; 83690; 85025; 96361; 96374; 96375; 96376; 99284; J1170; J1642; J2405; J7040

== ENCOUNTER 2019-07-30 23:49 | Observation (INO) | payer MEDICARE, BC ==
[2019-07-31] MEDS ORDERED: HYDROmorphone 1 MG/ML Syringe ONE (00:34)
--- NOTE | 2019-07-31 00:35 | EDM.PDOC ---
ED HPI GENERAL MEDICAL PROBLEM - General Chief Complaint: Back Pain or Injury Stated Complaint: BACK PAIN Time Seen by Provider: 07/30/19 23:59 - History of Present Illness INITIAL COMMENTS - FREE TEXT/NARRATIVE: HISTORY AND PHYSICAL: History of present illness: Patient is 68-year-old male with history of pulmonary cancer and chronic back pain who was seen yesterday for back and abdominal pain and had a workup including routine labs and CT of his abdomen and pelvis he was given Dilaudid IV with improvement was discharged to follow-up with his oncologist today. He was put on oral Dilaudid and had no improvement in our worsening related to the Dilaudid per family is requesting pain management to bridge there trip in the morning to [place]. Review of systems: As per history of present illness and below otherwise all systems reviewed and negative. Past medical history: As per history of present illness and as reviewed below otherwise noncontributory. Surgical history: As per history of present illness and as reviewed below otherwise noncontributory. Social history: No reported history of drug or alcohol abuse. Family history: As per history of present illness and as reviewed below otherwise noncontributory. Physical exam: HEENT: Atraumatic, normocephalic, pupils reactive, negative for conjunctival pallor or scleral icterus, mucous membranes moist, throat clear, neck supple, nontender, trachea midline. Lungs: Clear to auscultation, breath sounds equal bilaterally, chest nontender. Heart: S1S2, regular, negative for clicks, rubs, or JVD. Abdomen: Soft, nondistended, no localized tenderness. Negative for masses or hepatosplenomegaly. Negative for costovertebral tenderness. Pelvis: Stable nontender. Genitourinary: Deferred. Rectal: Deferred. Extremities: Atraumatic, negative for cords or calf pain. Neurovascular unremarkable. Neuro: Awake, alert, follows commands and moves all extremities limited grossly nonfocal exam Diagnostics: Deferred Therapeutics: Dilaudid 1 mg IV Impression: #1 history of pulmonary cancer #2 chronic intermittent back pain Definitive disposition and diagnosis as appropriate pending reevaluation and review of above. back Pain Score (Numeric/FACES): 8 - Related Data Allergies Allergy/AdvReac Type Severity Reaction Status Date / Time atorvastatin [From Lipitor] Allergy Body Aches Verified 07/31/19 00:10 Home Meds: Home Meds Insulin Glarg,Human.Rec.Analog [Lantus Solostar] 30 units SQ DAILY 08/27/16 [ History] Aspirin 81 mg PO DAILY 05/18/19 [History] Carvedilol [Coreg] 25 mg PO DAILY 05/18/19 [History] Empagliflozin [Jardiance] 25 mg PO DAILY 05/18/19 [History] Gabapentin [Neurontin] 200 mg PO BID 05/18/19 [History] Omeprazole 40 mg PO DAILY 05/18/19 [History] Pravastatin [Pravachol] 40 mg PO DAILY 05/18/19 [History] Umeclidinium Brm/Vilanterol Tr [Anoro Ellipta 62.5-25 MCG] 62.5 mcg IH DAILY PRN 05/18/19 [History] buPROPion HCl [Wellbutrin Xl] 300 mg PO DAILY 05/18/19 [History] Past Medical History HEENT History: Reports: Cataract Cardiovascular History: Reports: High Cholesterol, Hypertension, [place] Other Cardiovascular History: [place] was 16 years ago. open heart surgery 04/26/16 Respiratory History: Reports: None Gastrointestinal History: Reports: GERD Other Gastrointestinal History: states has "chest pain" every night from GERD, after eating and lying down Genitourinary History: Reports: None Musculoskeletal History: Reports: None Neurological History: Reports: None Psychiatric History: Reports: Anxiety, Depression Endocrine/Metabolic History: Reports: Diabetes, Type II, Obesity/BMI 30+ Hematologic History: Reports: None Immunologic History: Reports: None Oncologic (Cancer) History: Reports: None Dermatologic History: Reports: None - Infectious Disease History Infectious Disease History: Reports: None - Past Surgical History HEENT Surgical History: Reports: Cataract Surgery Cardiovascular Surgical History: Reports: Coronary Artery Bypass Respiratory Surgical History: Reports: Thoracentesis, Other (See Below) Musculoskeletal Surgical History: Reports: Knee Replacement Social & Family History - Family History Family Medical History: Noncontributory - Tobacco Use Smoking Status *Q: Former Smoker Used Tobacco, but Quit: Yes Month/Year Tobacco Last Used: 2015 - Caffeine Use Caffeine Use: Reports: Coffee - Recreational Drug Use Recreational Drug Use: No ED ROS GENERAL - Review of Systems Review Of Systems: ROS reveals no pertinent complaints other than HPI. ED EXAM, GENERAL - Physical Exam Exam: See Below (dictation) Course - Vital Signs Last Recorded V/S: Last Vital Signs Temp 35.6 C 07/31/19 00:10 Pulse 67 07/31/19 00:10 Resp 18 07/31/19 00:10 BP 160/58 H 07/31/19 00:10 Pulse Ox 97 07/31/19 00:10 - Orders/Labs/Meds Meds: Medications Discontinued Medications Generic Name Dose Route Start Last Admin Trade Name [place] PRN Reason Stop Dose Admin Hydromorphone HCl Confirm 07/31/19 00:34 07/31/19 00:41 Dilaudid Administered 07/31/19 00:35 Not Given Dose 1 mg .ROUTE .STK-MED ONE Hydromorphone HCl 1 mg 07/31/19 00:39 07/31/19 00:40 Dilaudid IVPUSH 07/31/19 00:40 1 mg ONETIME ONE Administration Departure - Departure Time of Disposition: 00:52 Disposition: Refer to Observation Condition: Good Clinical Impression: History of lung cancer, Chronic back pain - Discharge Information Referrals: Heraclio Mauricio MD [Primary Care Provider] - Forms: ED Department Discharge Additional Instructions: ]
[2019-07-31] MEDS ORDERED: HYDROmorphone 1 MG/ML Syringe IVPUSH ONE (00:39)
[2019-07-31] MEDS: HYDROmorphone 1 MG/ML Syringe IVPUSH PRN ×3 (02:38→11:35)
[2019-07-31 07:47] VITALS: PULSE 72
[2019-07-31] MEDS ORDERED: Pantoprazole 40 MG in Sodium Chloride 0.9% 10 ML IV ONE (09:26)
[2019-07-31] MEDS ORDERED: Acetaminophen 325 MG Tab PO PRN (09:27)
[2019-07-31] MEDS ORDERED: Bisacodyl 10 MG Supp RECTAL ONE (11:34)
[2019-07-31] MEDS ORDERED: Ondansetron 4 MG/2 ML SDV IVPUSH PRN (11:34)
[2019-07-31] MEDS ORDERED: VILANTEROL TR IH PRN (11:54)
[2019-07-31] MEDS ORDERED: UMECLIDINIUM BRM IH PRN (11:54)
[2019-07-31] MEDS ORDERED: ZOLPIDEM TARTRATE 5 MG PO PRN (11:54)
[2019-07-31] MEDS ORDERED: Carvedilol 25 MG Tab PO SCH ×2 (12:00→12:30)
[2019-07-31] MEDS ORDERED: Aspirin 81 MG Tab.Chew PO SCH (12:00)
[2019-07-31] MEDS ORDERED: Non-Formulary Medication 1 Each (Bupropion Hcl 300 MG) PO SCH (12:00)
[2019-07-31] MEDS ORDERED: Non-Formulary Medication 1 Each (Empagliflozin [Jardiance] 25 MG) PO SCH (12:00)
--- NOTE | 2019-07-31 12:12 | PCM.HP.2 ---
H&P History of Present Illness - General Date of Service: 07/31/19 Admit Problem/Dx: Admission Diagnosis/Problem Admission Diagnosis/Problem Back pain Source of Information: Patient History Limitations: Reports: No Limitations - History of Present Illness Initial Comments - Free Text/Narative: This 68 year old male with pmh of CAD with CABG, DM type 2 with peripheral neuropathy and lung ca iwth mets to spine and lymph nodes presented to the ED with complaints of severe back pain and abdominal pain. He reports this started worsening after his third round of chemotherapy. He was on Oxycodone prior, but started having severe abdominal pain minute after taking the Oxycodone. He saw his Oncologist, Dr Yaw Mcguire yesterday, 07/30, who ordered Dilaudid, but again had significant abdominal pain 15 minutes after ingestion of the pill. He reports the pain as intense stabbing pain throughout his abdomen. He was in the ED 07/29, CT cant of abdomen was otherwise normal. Dr Mcguire recommended MRI as outpatient yesterday, but with pain so severe he returned to ED with back pain and inability to take PO pain medications. He reports he does not feel constipated, took MOM yesterday and had large BM, no relief to back or abdominal pain. He denies urinary or fecal incontinence. No numbness or tingling to lower extremities and no focal neurologic deficits. No urinary concerns. No fevers or chills no chest pain or sob. I spoke with Dr Mcguire this morning regarding patient, he reports PET scan showed improvement of lesion in spine, but is concerned of fracture or bone fragment causing worsening pain. He recommended transfer to [facility] for further evaluation and treatment due to his worsening pain and the need for IV pain medication. Labwork obtained 07/30 in clinic reveled WBC 3,1600, Hgb 11.9. BMP WNL, BUN 11 and Cr 1.1. He was supposed to have chemotherapy, but due to counts Dr Mcguire said to hold off. back Pain Score (Numeric/FACES): 1 - Related Data Allergies/Adverse Reactions: Allergies Allergy/AdvReac Type Severity Reaction Status Date / Time atorvastatin [From Lipitor] Allergy Body Aches Verified 07/31/19 02:13 Home Medications: Home Meds Insulin Glarg,Human.Rec.Analog [Lantus Solostar] 30 units SQ DAILY 08/27/16 [ History] Aspirin 81 mg PO DAILY 05/18/19 [History] Carvedilol [Coreg] 25 mg PO DAILY 05/18/19 [History] Empagliflozin [Jardiance] 25 mg PO DAILY 05/18/19 [History] Gabapentin [Neurontin] 200 mg PO BID 05/18/19 [History] Omeprazole 40 mg PO DAILY 05/18/19 [History] Pravastatin [Pravachol] 40 mg PO DAILY 05/18/19 [History] Umeclidinium Brm/Vilanterol Tr [Anoro Ellipta 62.5-25 MCG] 62.5 mcg IH DAILY PRN 05/18/19 [History] buPROPion HCl [Wellbutrin Xl] 300 mg PO DAILY 05/18/19 [History] HYDROmorphone [Dilaudid] 2 mg PO ASDIRECTED PRN 07/31/19 [History] Zolpidem Tartrate 5 mg PO BEDTIME PRN 07/31/19 [History] Past Medical History HEENT History: Reports: Cataract Cardiovascular History: Reports: High Cholesterol, Hypertension, [place] Other Cardiovascular History: [place] was 16 years ago. open heart surgery 04/26/16 Respiratory History: Reports: None Gastrointestinal History: Reports: GERD Other Gastrointestinal History: states has "chest pain" every night from GERD, after eating and lying down Genitourinary History: Reports: None Musculoskeletal History: Reports: None Neurological History: Reports: None Psychiatric History: Reports: Anxiety, Depression Endocrine/Metabolic History: Reports: Diabetes, Type II, Obesity/BMI 30+ Hematologic History: Reports: None Immunologic History: Reports: None Oncologic (Cancer) History: Reports: Lung Dermatologic History: Reports: None - Infectious Disease History Infectious Disease History: Reports: None - Past Surgical History HEENT Surgical History: Reports: Cataract Surgery Cardiovascular Surgical History: Reports: Coronary Artery Bypass Respiratory Surgical History: Reports: Thoracentesis, Other (See Below) Musculoskeletal Surgical History: Reports: Knee Replacement Social & Family History - Family History Family Medical History: Noncontributory - Tobacco Use Smoking Status *Q: Former Smoker Used Tobacco, but Quit: Yes Month/Year Tobacco Last Used: 45 years ago - Caffeine Use Caffeine Use: Reports: Coffee - Recreational Drug Use Recreational Drug Use: No H&P Review of Systems - Review of Systems: Review Of Systems: See Below General: Reports: Fatigue (not sleeping due to pain). Denies: Fever, Chills, Malaise, Weakness HEENT: Reports: No Symptoms. Denies: Headaches, Sinus Congestion Pulmonary: Reports: No Symptoms. Denies: Shortness of Breath Cardiovascular: Reports: No Symptoms. Denies: Chest Pain, Syncope Gastrointestinal: Reports: Abdominal Pain (throughout, intermittent, radiation from back pain around flanks to front) Genitourinary: Reports: No Symptoms. Denies: Dysuria, Frequency, Burning Musculoskeletal: Reports: Back Pain (thoracic, lumbar) Exam - Exam Exam: See Below - Vital Signs Vital Signs: Last Vital Signs Temp 95.8 F 07/31/19 07:46 Pulse 72 07/31/19 07:46 Resp 18 07/31/19 07:46 BP 169/79 H 07/31/19 07:46 Pulse Ox 94 L 07/31/19 07:46 Weight: 111.72 kg - Exam General: Alert, Oriented, Cooperative Lungs: Clear to Auscultation, Normal Respiratory Effort Cardiovascular: Regular Rate, Regular Rhythm GI/Abdominal Exam: Normal Bowel Sounds, Soft, Tender Back Exam: Normal Inspection, Decreased Range of Motion (due to pain, but up ambulating. No leg weakness or incontinence.) Extremities: Normal Inspection, Normal Range of Motion, Non-Tender, No Pedal Edema Neurological: Cranial Nerves Intact Neuro Extensive - Mental Status: Alert, Oriented x3 Neuro Extensive - Motor, Sensory, Reflexes: CN II-XII Intact, Normal Gait Psychiatric: Alert, Normal Affect, Normal Mood - Problem List (1) Back pain SNOMED Code(s): 245241719 ICD Code: M54.9 - DORSALGIA, UNSPECIFIED Status: Acute Current Visit: Yes Qualifiers: Back pain location: thoracic back pain Chronicity: acute Back pain laterality: left Qualified Code(s): M54.6 - Pain in thoracic spine (2) Lung cancer SNOMED Code(s): 799376181 ICD Code: C34.90 - MALIGNANT NEOPLASM OF UNSP PART OF UNSP BRONCHUS OR LUNG Status: Acute Current Visit: Yes (3) CAD (coronary artery disease) SNOMED Code(s): 89221734 ICD Code: I25.10 - ATHSCL HEART DISEASE OF [place] CORONARY ARTERY W/O ANG PCTRS Status: Acute Current Visit: Yes Problem List Initiated/Reviewed/Updated: Yes Orders Last 24hrs: Active Orders 24 hr Category Date Time Status Patient Status [ADT] Stat ADT 07/31/19 00:59 Active Blood Glucose Check, Bedside [RC] TIDMEALS Care 07/31/19 11:31 Active Oxygen Therapy [RC] ASDIRECTED Care 07/31/19 02:03 Active [place] [employer] Diet [DIET] Diet 07/31/19 Breakfast Active Lumbar Spine Comp w wo Cont [MR] Urgent Exams 07/31/19 09:24 Ordered Thoracic Spine Comp w wo Cont [MR] Urgent Exams 07/31/19 09:24 Ordered Acetaminophen [Tylenol] Med 07/31/19 09:27 Active 650 mg PO Q4H PRN Aspirin Med 07/31/19 12:00 Active 81 mg PO DAILY Carvedilol [Coreg] Med 07/31/19 12:00 Ordered 25 mg PO DAILY Empagliflozin [Jardiance] Med 07/31/19 12:00 Ordered 25 mg PO DAILY Gabapentin [Neurontin] Med 07/31/19 21:00 Active 200 mg PO BID HYDROmorphone [Dilaudid] Med 07/31/19 02:02 Active 1 mg IVPUSH Q3H PRN Ondansetron [Zofran] Med 07/31/19 11:34 Active 4 mg IVPUSH Q4H PRN Umeclidinium Brm/Vilanterol Tr Med 07/31/19 11:54 Ordered 62.5 mcg IH DAILY PRN Zolpidem Tartrate Med 07/31/19 11:54 Ordered 5 mg PO BEDTIME PRN buPROPion HCl Med 07/31/19 12:00 Ordered 300 mg PO DAILY Medication Orders Acetaminophen (Tylenol) 650 mg PO Q4H PRN PRN Reason: Pain Aspirin (Aspirin) 81 mg PO DAILY [place] Carvedilol (Coreg) 25 mg PO DAILY [place] Gabapentin (Neurontin) 200 mg PO BID [place] Hydromorphone HCl (Dilaudid) 1 mg IVPUSH Q3H PRN PRN Reason: Pain Last Admin: 07/31/19 11:35 Dose: 1 mg Admin: 07/31/19 07:21 Dose: 1 mg Admin: 07/31/19 02:38 Dose: 1 mg Non-Formulary Medication (Bupropion Hcl) 300 mg PO DAILY [place] Non-Formulary Medication (Empagliflozin [Jardiance]) 25 mg PO DAILY [place] Non-Formulary Medication (Umeclidinium Brm/Vilanterol Tr) 62.5 mcg IH DAILY PRN PRN Reason: Dyspnea Non-Formulary Medication (Zolpidem Tartrate) 5 mg PO BEDTIME PRN PRN Reason: Sleep Ondansetron HCl (Zofran) 4 mg IVPUSH Q4H PRN PRN Reason: Nausea Assessment/Plan Comment:: This 68year old male admitted with acute on chronic thoracic back pain with inability to tolerate PO pain medications He was admitted and treated with IV dilaudid. Pain is well controlled with this regimen. I spoke with Dr Mcguire, oncologist who recommended transfer for further evaluation of back pain, concerned for fracture due to metastatic lesion in the thoracic spine. I was able to contact Dr Corley, Hospitalist in [facility] who has graciously accept patient for transfer. Fadi will go by private vehicle as he feels he will not tolerated a ambulance ride. He is currently stable and this is appropriate. Family feel comfortable as long as he is given pain medication prior to departure. We will puch imaging we have available here and family will have transfer packet with labwork.
[2019-07-31] MEDS ORDERED: buPROPion 150 MG Tab.ER PO SCH (12:15)
[2019-07-31 12:27] VITALS: BP 164/63
[2019-07-31] MEDS ORDERED: HYDROmorphone 2 MG/ML Syringe IVPUSH ONE (13:41)
[2019-07-31] MEDS ORDERED: Gabapentin 100 MG Cap PO SCH (21:00)
== END 2019-07-31 14:12 ==
LOC: MW.ED 23:49 → MW.MS 07-31 00:59
PROVIDERS: ADMIT Internal Medicine; ATTEND Internal Medicine
DX: G89.29 Other chronic pain (principal); M54.6 Pain in thoracic spine; I25.10 Atherosclerotic heart disease of native coronary artery without angina pectoris; I10 Essential (primary) hypertension; I25.2 Old myocardial infarction; E11.42 Type 2 diabetes mellitus with diabetic polyneuropathy; E78.00 Pure hypercholesterolemia, unspecified; K21.9 Gastro-esophageal reflux disease without esophagitis; C34.90 Malignant neoplasm of unspecified part of unspecified bronchus or lung; C77.9 Secondary and unspecified malignant neoplasm of lymph node, unspecified; C79.51 Secondary malignant neoplasm of bone; Z88.8 Allergy status to other drugs, medicaments and biological substances; Z95.1 Presence of aortocoronary bypass graft; Z87.891 Personal history of nicotine dependence; Z79.4 Long term (current) use of insulin; Z79.82 Long term (current) use of aspirin; Z79.899 Other long term (current) drug therapy
CPT/HCPCS: 82962; 96374; 96375; 96376; 99282; 99283-25; A9270-GY; C9113; G0378; J1170; J2405; J7050

== ENCOUNTER 2019-08-26 10:50 | Emergency (ER) | payer MEDICARE, BC ==
[2019-08-26] MEDS ORDERED: Sodium Chloride 0.9% 2.5 ML Syringe FLUSH PRN (10:56)
[2019-08-26] MEDS ORDERED: Sodium Chloride 0.9% 10 ML Syringe FLUSH PRN (10:56)
[2019-08-26] MEDS ORDERED: Ondansetron 4 MG/2 ML SDV IVPUSH ONE (11:01)
[2019-08-26] MEDS ORDERED: HYDROmorphone 2 MG/ML Syringe IVPUSH ONE (11:01)
--- NOTE | 2019-08-26 11:09 | EDM.PDOC ---
ED HPI GENERAL MEDICAL PROBLEM - General Chief Complaint: Gastrointestinal Problem Stated Complaint: CANCER Time Seen by Provider: 08/26/19 10:51 Source of Information: Reports: Patient History Limitations: Reports: No Limitations - History of Present Illness INITIAL COMMENTS - FREE TEXT/NARRATIVE: History of present illness: []Patient has a history of lung cancer and has been constipated for 2 days. His gave him and enema and caused bleeding from his rectum. Arrives by ambulance complaining of pain, Review of systems: As per history of present illness and below otherwise all systems reviewed and negative. Past medical history: As per history of present illness and as reviewed below otherwise noncontributory. Surgical history: As per history of present illness and as reviewed below otherwise noncontributory. Social history: No reported history of drug or alcohol abuse. Family history: As per history of present illness and as reviewed below otherwise noncontributory. Physical exam: General: Well developed, well nourished in NAD HEENT: Atraumatic, normocephalic, pupils reactive, negative for conjunctival pallor or scleral icterus, mucous membranes moist, throat clear, neck supple, nontender, trachea midline. Lungs: Clear to auscultation, breath sounds equal bilaterally, chest nontender. Heart: S1S2, regular, negative for clicks, rubs, or JVD. Abdomen: NABS, Soft, nondistended, mild diffuse tenderness without rebound or guarding. Negative for masses or hepatosplenomegaly. Negative for costovertebral tenderness. Pelvis: Stable nontender. Genitourinary: Deferred. Rectal: Deferred. Extremities: Atraumatic, negative for cords or calf pain. Neurovascular unremarkable. Neuro: Awake, alert, oriented. Cranial nerves II through XII unremarkable. Cerebellum unremarkable. Motor and sensory unremarkable throughout. Exam nonfocal. Skin:warm and dry Diagnostics: CBC, chemistry, weight, upright abdomen and chest x-rays, Therapeutics: IV hydration, Dilaudid, Zofran, magnesium citrate, enema ED Course: stable, patient had large bowel movement while in the ED and is improved. Impression: constipation Prescriptions: None Plan: Take meds as directed, follow up with your primary care physician, return to ER if symptoms worsen or change. Definitive disposition and diagnosis as appropriate pending reevaluation and review of above. Rectal Pain Score (Numeric/FACES): 10 - Related Data Allergies Allergy/AdvReac Type Severity Reaction Status Date / Time atorvastatin [From Lipitor] Allergy Body Aches Verified 08/26/19 11:03 Home Meds: Home Meds Insulin Glarg,Human.Rec.Analog [Lantus Solostar] 30 units SQ DAILY 08/27/16 [ History] Aspirin 81 mg PO DAILY 05/18/19 [History] Carvedilol [Coreg] 25 mg PO DAILY 05/18/19 [History] Empagliflozin [Jardiance] 25 mg PO DAILY 05/18/19 [History] Gabapentin [Neurontin] 200 mg PO BID 05/18/19 [History] Omeprazole 40 mg PO DAILY 05/18/19 [History] Pravastatin [Pravachol] 40 mg PO DAILY 05/18/19 [History] buPROPion HCl [Wellbutrin Xl] 300 mg PO DAILY 05/18/19 [History] Acetaminophen [Tylenol Extra Strength] 1,000 mg PO Q6H PRN 08/26/19 [History] Diphenhyd/Lidocaine/Nystatin [Magic Mouthwash] 5 ml PO ASDIRECTED PRN 08/26/19 [ History] Docusate Sodium [Colace] 100 mg PO BID 08/26/19 [History] Etoposide 100 mg PO DAILY 08/26/19 [History] HYDROmorphone [Dilaudid 1 MG/ML Soln] 2 mg PO ASDIRECTED 08/26/19 [History] Melatonin 3 mg PO BEDTIME PRN 08/26/19 [History] Naloxegol Oxalate [Movantik] 25 mg PO DAILY 08/26/19 [History] Ondansetron [Zofran] 8 mg PO DAILY 08/26/19 [History] Prochlorperazine Maleate 10 mg PO Q6H PRN 08/26/19 [History] dexAMETHasone [Dexamethasone] 4 mg PO BID 08/26/19 [History] fentaNYL [Fentanyl] 1 patch TD Q72H PRN 08/26/19 [History] Past Medical History HEENT History: Reports: Cataract Cardiovascular History: Reports: High Cholesterol, Hypertension, [place] Other Cardiovascular History: [place] was 16 years ago. open heart surgery 04/26/16 Respiratory History: Reports: None Gastrointestinal History: Reports: GERD Other Gastrointestinal History: states has "chest pain" every night from GERD, after eating and lying down Genitourinary History: Reports: None Musculoskeletal History: Reports: None Neurological History: Reports: None Psychiatric History: Reports: Anxiety, Depression Endocrine/Metabolic History: Reports: Diabetes, Type II, Obesity/BMI 30+ Hematologic History: Reports: None Immunologic History: Reports: None Oncologic (Cancer) History: Reports: Lung Dermatologic History: Reports: None - Infectious Disease History Infectious Disease History: Reports: None - Past Surgical History HEENT Surgical History: Reports: Cataract Surgery Cardiovascular Surgical History: Reports: Coronary Artery Bypass Respiratory Surgical History: Reports: Thoracentesis, Other (See Below) Musculoskeletal Surgical History: Reports: Knee Replacement Social & Family History - Family History Family Medical History: Noncontributory - Caffeine Use Caffeine Use: Reports: Coffee ED ROS GENERAL - Review of Systems Review Of Systems: See Below ED EXAM, GI/ABD - Physical Exam Exam: See Below Course - Vital Signs Last Recorded V/S: Last Vital Signs Temp 95.9 F 08/26/19 11:01 Pulse 72 08/26/19 11:01 Resp 18 08/26/19 11:01 BP 108/61 08/26/19 11:01 Pulse Ox 98 08/26/19 11:01 - Orders/Labs/Meds Orders: Active Orders 24 hr Category Date Time Status RT BiPAP/CPAP [RC] ASDIRECTED Care 08/26/19 10:55 Inactive Sodium Chloride 0.9% [Saline Flush] Med 08/26/19 10:56 Active 10 ml FLUSH ASDIRECTED PRN Sodium Chloride 0.9% [Saline Flush] Med 08/26/19 10:56 Active 2.5 ml FLUSH ASDIRECTED PRN Saline Lock Insert [OM.PC] Stat Oth 08/26/19 10:55 Ordered Medication Orders Sodium Chloride (Saline Flush) 10 ml FLUSH ASDIRECTED PRN PRN Reason: Keep Vein Open Last Admin: 08/26/19 11:17 Dose: 10 ml Sodium Chloride (Saline Flush) 2.5 ml FLUSH ASDIRECTED PRN PRN Reason: Keep Vein Open Last Admin: 08/26/19 11:16 Dose: 2.5 ml Labs: Laboratory Tests 08/26/19 08/26/19 Range/Units 11:20 11:20 WBC 6.61 (4.0-11.0) K/uL RBC 4.26 L (4.50-5.90) M/uL Hgb 13.4 (13.0-17.0) g/dL Hct 40.5 (38.0-50.0) % MCV 95.1 (80.0-98.0) fL MCH 31.5 (27.0-32.0) pg MCHC 33.1 (31.0-37.0) g/dL RDW Std Deviation 62.0 (28.0-62.0) fl RDW Coeff of [place] 18 H (11.0-15.0) % Plt Count 103 L (150-400) K/uL MPV 9.60 (7.40-12.00) fL Neut % (Auto) 87.4 H (48.0-80.0) % Lymph % (Auto) 10.1 L (16.0-40.0) % [place] % (Auto) 1.7 (0.0-15.0) % Eos % (Auto) 0.8 (0.0-7.0) % Baso % (Auto) 0.0 (0.0-1.5) % Neut # (Auto) 5.8 H (1.4-5.7) K/uL Lymph # (Auto) 0.7 (0.6-2.4) K/uL [place] # (Auto) 0.1 (0.0-0.8) K/uL Eos # (Auto) 0.1 (0.0-0.7) K/uL Baso # (Auto) 0.0 (0.0-0.1) K/uL Nucleated RBC % 0.0 /100WBC Nucleated RBCs # 0 K/uL Sodium 140 (136-148) mmol/L Potassium 3.9 (3.5-5.1) mmol/L Chloride 103 (98-107) mmol/L Carbon Dioxide 27.9 (21.0-32.0) mmol/L BUN 29 H (7.0-18.0) mg/dL Creatinine 0.7 L (0.8-1.3) mg/dL Est Cr Clr Drug Dosing 99.60 mL/min Estimated GFR (MDRD) > 60.0 ml/min Glucose 206 H (74-106) mg/dL Calcium 8.7 (8.5-10.1) mg/dL Total Bilirubin 0.6 (0.2-1.0) mg/dL AST 18 (15-37) IU/L ALT 50 (14-63) IU/L Alkaline Phosphatase 64 (46-116) U/L Total Protein 6.3 L (6.4-8.2) g/dL Albumin 3.1 L (3.4-5.0) g/dL Globulin 3.2 (2.6-4.0) g/dL Albumin/Globulin Ratio 1.0 (0.9-1.6) Meds: Medications Generic Name Dose Route Start Last Admin Trade Name Freq PRN Reason Stop Dose Admin Sodium Chloride 10 ml 08/26/19 10:56 08/26/19 11:17 Saline Flush FLUSH 10 ml ASDIRECTED PRN Administration Keep Vein Open Sodium Chloride 2.5 ml 08/26/19 10:56 08/26/19 11:16 Saline Flush FLUSH 2.5 ml ASDIRECTED PRN Administration Keep Vein Open Discontinued Medications Generic Name Dose Route Start Last Admin Trade Name Freq PRN Reason Stop Dose Admin Al Hydroxide/Mg Hydroxide 15 0 ml 08/26/19 12:40 08/26/19 12:44 ml/ Lidocaine HCl 5 ml PO 08/26/19 12:41 20 each ONETIME ONE Administration Hydromorphone HCl 1 mg 08/26/19 11:01 08/26/19 11:16 Dilaudid IVPUSH 08/26/19 11:02 1 mg ONETIME ONE Administration Sodium Chloride 1,000 mls @ 999 mls/hr 08/26/19 11:27 08/26/19 11:29 Normal Saline IV 08/26/19 12:27 999 mls/hr .Bolus ONE Administration Magnesium Citrate 296 ml 08/26/19 12:33 08/26/19 12:38 Citrate Of Magnesia PO 08/26/19 12:34 296 ml ONETIME ONE Administration Ondansetron HCl 4 mg 08/26/19 11:01 08/26/19 11:16 Zofran IVPUSH 08/26/19 11:02 4 mg ONETIME ONE Administration Departure - Departure Time of Disposition: 13:57 Disposition: Home, Self-Care 01 Condition: Good Clinical Impression: Constipation Qualifiers: Constipation type: unspecified constipation type Qualified Code(s): K59.00 - Constipation, unspecified - Discharge Information *PRESCRIPTION DRUG MONITORING PROGRAM REVIEWED*: Not Applicable *COPY OF PRESCRIPTION DRUG MONITORING REPORT IN PATIENT STAN: Not Applicable Referrals: Heraclio Mauricio MD [Primary Care Provider] - Forms: ED Department Discharge Additional Instructions: The following information is given to patients seen in the emergency department who are being discharged to home. This information is to outline your options for follow-up care. We provide all patients seen in our emergency department with a follow-up referral. The need for follow-up, as well as the timing and circumstances, are variable depending upon the specifics of your emergency department visit. If you don't have a primary care physician on staff, we will provide you with a referral. We always advise you to contact your personal physician following an emergency department visit to inform them of the circumstance of the visit and for follow-up with them and/or the need for any referrals to a consulting specialist. The emergency department will also refer you to a specialist when appropriate. This referral assures that you have the opportunity for follow-up care with a specialist. All of these measure are taken in an effort to provide you with optimal care, which includes your follow-up. Under all circumstances we always encourage you to contact your private physician who remains a resource for coordinating your care. When calling for follow-up care, please make the office aware that this follow-up is from your recent emergency room visit. If for any reason you are refused follow-up, please contact the [facility] Emergency Department at and asked to speak to the emergency department charge nurse. Take magnesium citrate as needed for constipation, follow-up with primary care, return if symptoms worsen or change. [facility] [address] [place] [id number] - My Orders Last 24 Hours: My Active Orders 08/26/19 10:55 RT BiPAP/CPAP [RC] ASDIRECTED Saline Lock Insert [OM.PC] Stat 08/26/19 10:56 Sodium Chloride 0.9% [Saline Flush] 10 ml FLUSH ASDIRECTED PRN Sodium Chloride 0.9% [Saline Flush] 2.5 ml FLUSH ASDIRECTED PRN - Assessment/Plan Last 24 Hours: My Active Orders 08/26/19 10:55 RT BiPAP/CPAP [RC] ASDIRECTED Saline Lock Insert [OM.PC] Stat 08/26/19 10:56 Sodium Chloride 0.9% [Saline Flush] 10 ml FLUSH ASDIRECTED PRN Sodium Chloride 0.9% [Saline Flush] 2.5 ml FLUSH ASDIRECTED PRN
[2019-08-26] MEDS ORDERED: Sodium Chloride 0.9% 1,000 ML IV ONE (11:27)
[2019-08-26 12:08] LABS: BLOOD UREA NITROGEN,BUN 29 mg/dL (7.0-18.0); CARBON DIOXIDE,CO2 27.9 mmol/L (21.0-32.0); CHLORIDE,CL 103 mmol/L (98-107); GLUCOSE RANDOM 206 mg/dL (74-106); POTASSIUM,K 3.9 mmol/L (3.5-5.1); SODIUM,NA 140 mmol/L (136-148)
[2019-08-26] MEDS ORDERED: Magnesium Citrate Solution 296 ML Bottle PO ONE (12:33)
[2019-08-26] MEDS ORDERED: Alum Hydrox/Mag Hydrox/Simeth 15 ML, Lidocaine 2% 5 ML PO ONE ×2 (12:40)
--- NOTE | 2019-08-26 12:54 | CR ---
EXAM DATE: 08/26/19 PATIENT'S AGE: 68 Abdomen: Upright and decubitus views of the abdomen were obtained. No free air is identified. Bowel gas pattern appears within normal limits. Degenerative change partially seen within the spine. Nothing acute is definitely appreciated. Impression: 1. Incidental findings as noted above. 2. No free air or other acute findings are seen on upright and decubitus views. Diagnostic code #2 Report Signed by Proxy. KANDACE
--- NOTE | 2019-08-26 12:55 | CR ---
EXAM DATE: 08/26/19 PATIENT'S AGE: 68 Chest: AP view of the chest was obtained. Comparison: No previous chest imaging. Right-sided catheter is seen which appears to be an infusion port. Previous sternotomy is seen. No acute parenchymal change is appreciated. Bony structures are grossly intact. Impression: 1. Nothing acute is suspected. Diagnostic code #2 Report Signed by Proxy. KANDACE
[2019-08-26 14:13] VITALS: BP 95/62; PULSE 88
== END 2019-08-26 14:14 | disposition home or self-care (01) ==
LOC: MW.ED 10:50
DX: K59.00 Constipation, unspecified (principal); I10 Essential (primary) hypertension; E11.9 Type 2 diabetes mellitus without complications; E78.00 Pure hypercholesterolemia, unspecified; I25.2 Old myocardial infarction; K21.9 Gastro-esophageal reflux disease without esophagitis; F41.9 Anxiety disorder, unspecified; F32.9 Major depressive disorder, single episode, unspecified; E66.9 Obesity, unspecified; Z68.34 Body mass index [BMI] 34.0-34.9, adult; Z79.82 Long term (current) use of aspirin; Z79.4 Long term (current) use of insulin; Z79.899 Other long term (current) drug therapy; Z88.8 Allergy status to other drugs, medicaments and biological substances; Z95.1 Presence of aortocoronary bypass graft
CPT/HCPCS: 36415; 71045; 74018; 80053; 85025; 96361; 96374; 96375; 99284; A9270; J1170; J2405; J7040